=== PATIENT | female | born 1940 | race Caucasian/White ===

== ENCOUNTER 2020-12-26 10:19 | Inpatient (IN) | payer MEDICARE, BC ==
[2020-12-26] MEDS ORDERED: CHLORPHENIRAMINE MALEATE 4 MG PO PRN (17:12)
[2020-12-26] MEDS ORDERED: Bisacodyl 10 MG Supp RECTAL PRN (17:12)
[2020-12-26] MEDS ORDERED: Acetaminophen/HYDROcodone 325-5 MG Tab PO PRN (17:12)
[2020-12-26] MEDS ORDERED: Non-Formulary Medication 1 Each (Docusate Sodium [Docusate Sodium] 283 MG/5 ML Enema) RC PRN (17:12)
[2020-12-26] MEDS ORDERED: Non-Formulary Medication 1 Each (Nicotine Polacrilex [Nicotine Lozenge] 2 MG Lozenge) BC PRN (17:12)
[2020-12-26] MEDS ORDERED: Melatonin 3 MG Tab PO PRN (17:12)
[2020-12-26] MEDS ORDERED: [UNRECOGNIZED DRUG - OTHER] PO PRN (17:12)
[2020-12-26] MEDS ORDERED: Nitroglycerin 0.4 MG Tab.SL SL PRN (17:12)
[2020-12-26] MEDS ORDERED: Calcium Carbonate 500 MG Tab.Chew PO PRN (17:12)
[2020-12-26] MEDS ORDERED: Acetaminophen 325 MG Tab PO PRN (17:12)
[2020-12-26] MEDS ORDERED: MENTHOL PO PRN (17:12)
[2020-12-26] MEDS ORDERED: ALPRAZolam 0.25 MG Tab PO PRN (17:12)
[2020-12-26] MEDS ORDERED: Polyethylene Glycol 3350 Powder 17 GM Packet PO PRN (17:12)
[2020-12-26] MEDS ORDERED: BENZOCAINE PO PRN (17:12)
[2020-12-26] MEDS: Albuterol 8 GM Inhaler INH SCH ×2 (17:55→21:59)
[2020-12-26] MEDS: Benzonatate 100 MG Cap PO SCH (20:23)
[2020-12-26] MEDS: guaiFENesin 600 MG Tab.ER PO SCH (20:23)
[2020-12-26] MEDS: traMADol 50 MG Tab PO SCH (20:23)
[2020-12-26] MEDS: Cyclobenzaprine 5 MG Tab PO SCH (20:24)
[2020-12-26] MEDS: Simvastatin 10 MG Tab PO SCH (20:24)
[2020-12-26] MEDS: Metoprolol Tartrate 50 MG Tab PO SCH (20:25)
[2020-12-26] MEDS ORDERED: traMADol 50 MG Tab PO SCH (21:00)
[2020-12-27] MEDS: Albuterol 8 GM Inhaler INH SCH ×3 (01:10→10:16)
[2020-12-27] MEDS: Levothyroxine 50 MCG Tab PO SCH (05:55)
[2020-12-27] MEDS: Omeprazole 20 MG Cap.CR PO SCH ×2 (05:56→06:33)
[2020-12-27] MEDS: Furosemide 40 MG Tab PO SCH (08:18)
[2020-12-27] MEDS: Levofloxacin 500 MG Tab PO SCH (08:18)
[2020-12-27] MEDS: guaiFENesin 600 MG Tab.ER PO SCH ×2 (08:18→20:06)
[2020-12-27] MEDS: Metoprolol Tartrate 50 MG Tab PO SCH ×2 (08:19→20:06)
[2020-12-27] MEDS: Cyclobenzaprine 5 MG Tab PO SCH ×3 (08:19→20:05)
[2020-12-27] MEDS: Benzonatate 100 MG Cap PO SCH ×3 (08:19→20:05)
[2020-12-27] MEDS: Escitalopram 10 MG Tab PO SCH (08:19)
[2020-12-27] MEDS: Multivitamins with Minerals/Iron/Folic Acid/Lycopene Tab PO SCH (08:20)
[2020-12-27] MEDS: Nicotine 14 MG/24 Hr Patch TRDERM SCH (08:25)
[2020-12-27] MEDS: Lisinopril 5 MG Tab PO SCH (08:25)
[2020-12-27] MEDS: Cyanocobalamin (Vitamin B12) 500 MCG Tab PO SCH (08:31)
[2020-12-27] MEDS ORDERED: Lisinopril 5 MG Tab PO SCH (09:00)
--- NOTE | 2020-12-27 09:12 | PCM.HP.2 ---
H&P History of Present Illness - General Date of Service: 12/27/20 Admit Problem/Dx: Admission Diagnosis/Problem Admission Diagnosis/Problem Compression fracture Source of Information: Patient, Old Records, RN History Limitations: Reports: No Limitations Upper Back Pain Score (Numeric/FACES): 0 - Related Data Allergies/Adverse Reactions: Allergies Allergy/AdvReac Type Severity Reaction Status Date / Time naproxen [From Aleve] Allergy Cannot Verified 12/28/20 16:05 Remember Penicillins Allergy Rash Verified 12/28/20 16:05 Sulfa (Sulfonamide Allergy Cannot Verified 12/28/20 16:05 Antibiotics) Remember Home Medications: Home Meds Albuterol [Ventolin HFA] 2 puff INH Q4H 09/06/17 [History] Chlorpheniramine Maleate [Chlor-Trimeton] 4 mg PO Q6HR PRN 09/06/17 [History] Dabigatran Etexilate Mesylate [Pradaxa] 1 cap PO BID 09/06/17 [History] Multivitamins [Tab-A-Gabriel] 1 tab PO DAILY 09/06/17 [History] Omeprazole 1 cap PO DAILY 09/06/17 [History] Simvastatin [Zocor] 10 mg PO BEDTIME 09/06/17 [History] ALPRAZolam [Xanax] 0.25 mg PO BID PRN 04/12/20 [History] Acetaminophen [Tylenol] 650 mg PO Q4H PRN 04/12/20 [History] Calcium Carbonate [Tums] 1,000 mg PO Q4HR PRN 04/12/20 [History] Cyanocobalamin (Vitamin B-12) [Vitamin B-12] 1,000 mcg PO DAILY 04/12/20 [History] Escitalopram Oxalate 1 tab PO DAILY 04/12/20 [History] Nitroglycerin [Nitrostat] 0.4 mg SL ASDIRECTED PRN 04/12/20 [History] Azelastine HCl 1 spray NASBOTH Q12HR 04/13/20 [History] Benzocaine/Menthol [Cepacol Sore Throat Lozenge] 1 lozenge PO QID PRN 12/26/20 [History] Docusate Sodium 283 mg RC DAILY PRN 12/26/20 [History] Hydrocodone/Acetaminophen [HYDROcodone-Acetaminophen 5-325 MG] 1 tab PO TID PRN 12/26/20 [History] Levothyroxine 150 mcg PO DAILY 12/26/20 [History] Melatonin 3 mg PO BEDTIME PRN 12/26/20 [History] Nicotine Polacrilex [Nicotine Lozenge] 2 mg BC ASDIRECTED PRN 12/26/20 [History] Sennosides [Senna] 2 tab PO BID PRN 12/26/20 [History] polyethylene glycoL 3350 [MiraLAX] 17 gm PO DAILY PRN 12/26/20 [History] Budesonide/Glycopyr/Formoterol [Breztri Aerosphere Inhaler] 2 puff INH BID #1 ea 01/03/21 [Rx] Cyclobenzaprine [Flexeril] 5 mg PO TID PRN #30 01/03/21 [Rx] Furosemide 40 mg PO DAILY PRN #30 01/03/21 [Rx] Metoprolol Succinate [Toprol XL] 25 mg PO BEDTIME #30 tab.er 01/03/21 [Rx] Nicotine [Nicotine Patch] 14 mg TD DAILY #30 ea 01/03/21 [Rx] buPROPion HCL [Bupropion HCl Sr] 100 mg PO BID #60 tab.sr.12h 01/03/21 [Rx] lisinopriL [Prinivil] 5 mg PO DAILY #30 tablet 01/03/21 [Rx] traMADol [Ultram] 50 mg PO TID PRN 14 Days #30 01/03/21 [Rx] Past Medical History HEENT History: Reports: Allergic Rhinitis Cardiovascular History: Reports: Afib, CAD, Heart Valve Replacement, High Cholesterol, Other (See Below) Other Cardiovascular History: Valvular heart disease Respiratory History: Reports: COPD Gastrointestinal History: Reports: Cholelithiasis, GERD, Other (See Below) Other Gastrointestinal History: dysphagia, rectocele Genitourinary History: Reports: Other (See Below) Other Genitourinary History: malignant neoplasm of bladder unspecified Musculoskeletal History: Reports: Other (See Below) Other Musculoskeletal History: Arthralgia of foot Psychiatric History: Reports: Depression Endocrine/Metabolic History: Reports: Hypothyroidism Hematologic History: Reports: B12 Deficiency Oncologic (Cancer) History: Reports: Bladder, Other (See Below) Other Oncologic History: Anal skin - Infectious Disease History Infectious Disease History: Reports: None - Past Surgical History Oncologic Surgical History: Reports: Other (See Below) Other Oncologic Surgeries/Procedures: 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 Social & Family History - Family History HEENT: Reports: None Cardiac: Reports: Hypertension, Other (See Below) Respiratory: Reports: None GI: Reports: Hiatal Hernia : Reports: None OBGYN: Reports: None Musculoskeletal: Reports: None Neurological: Reports: None Psychiatric: Reports: None Endocrine/Metabolic: Reports: None Hematologic: Reports: None Immunologic: Reports: None Dermatologic: Reports: None Oncologic: Reports: Other (See Below) - Tobacco Use Tobacco Use Status *Q: Current Every Day Tobacco User Years of Tobacco use: 50 Packs/Tins Daily: 0.5 - Caffeine Use Caffeine Use: Reports: Coffee, Soda - Recreational Drug Use Recreational Drug Use: No H&P Review of Systems - Review of Systems: Review Of Systems: See Below General: Reports: No Symptoms HEENT: Reports: No Symptoms Pulmonary: Reports: Cough, Sputum (white to yellow) Cardiovascular: Denies: No Symptoms Gastrointestinal: Reports: Constipation Genitourinary: Reports: Dysuria Musculoskeletal: Reports: Back Pain Psychiatric: Reports: No Symptoms Neurological: Reports: Weakness, Gait Disturbance. Denies: Confusion, Dizziness Hematologic/Lymphatic: Reports: Anemia Immunologic: Reports: No Symptoms Exam - Exam Exam: See Below - Vital Signs Vital Signs: Last Vital Signs Temp 97.2 F 12/27/20 08:17 Pulse 60 12/27/20 08:19 Resp 18 12/27/20 08:17 BP 140/95 H 12/27/20 08:25 Pulse Ox 96 12/27/20 08:17 Weight: 138 lb 14.4 oz - Exam Quality Assessment: DVT Prophylaxis. No: Supplemental Oxygen General: Alert, Oriented, Cooperative HEENT: Mucosa Moist & H. Rivera Colon Neck: Supple Lungs: Rhonchi Cardiovascular: Irregular Rhythm GI/Abdominal Exam: Soft, No Distention. No: Guarding, Rigid, Rebound, Tender, Mass (Female) Exam: Deferred Extremities: Normal Capillary Refill Skin: Warm, Dry, Intact Neurological: Normal Speech, Sensation Intact. No: Focal Deficit Neuro Extensive - Mental Status: Alert, Oriented x3 Neuro Extensive - Motor, Sensory, Reflexes: CN II-XII Intact. No: Receptive Aphasia Psychiatric: Alert, Normal Affect, Labile Mood - Patient Data Result Diagrams: 01/01/21 07:10 01/01/21 07:10 Sepsis Event Note - Evaluation Sepsis Screening Result: No Definite Risk - Focused Exam Vital Signs: Vital Signs Temp Pulse Pulse Resp BP BP Pulse Ox 12/27/20 08:25 140/95 H 12/27/20 08:19 60 140/95 H 12/27/20 08:17 97.2 F 60 18 140/95 H 96 Problem List Initiated/Reviewed/Updated: Yes Orders Last 24hrs: Active Orders 24 hr Category Date Time Status Patient Status [ADT] Routine ADT 12/26/20 12:00 Active Communication Order [RC] Care 12/26/20 12:48 Active Intake and Output [RC] 1400,2200,0600 Care 12/26/20 12:08 Active Oxygen Therapy [RC] .PRN Care 12/26/20 12:00 Active Up With Assistance [RC] DAILY Care 12/26/20 12:08 Active VTE/DVT Education [RC] We@09 Care 12/26/20 12:00 Active Vital Signs [RC] Care 12/26/20 12:00 Active OT Evaluation and Treatment [CONS] Stat Cons 12/26/20 12:08 Active PT Evaluation and Treatment [CONS] Routine Cons 12/26/20 12:08 Active Regular Diet [DIET] Diet 12/26/20 Dinner Active ALPRAZolam [Xanax] Med 12/26/20 17:12 Active 0.25 mg PO BID PRN Acetaminophen [TylenoL] Med 12/26/20 17:12 Active 650 mg PO Q4H PRN Acetaminophen/HYDROcodone [Cresco 325-5 MG] Med 12/26/20 17:12 Active 1 tab PO TID PRN Albuterol [Ventolin HFA] Med 12/26/20 18:00 Active 0 gm INH Q4H Azelastine HCl [Azelastine HCl] Med 12/26/20 17:15 Pending 1 spray NASBOTH Q12HR Benzocaine/Menthol [Cepacol Sore Throat Lozenge] Med 12/26/20 17:12 Pending 1 lozenge PO QID PRN Benzonatate [Tessalon Perles] Med 12/26/20 21:00 Active 200 mg PO TID Budesonide/Glycopyr/Formoterol [Breztri Aerosphere Med 12/26/20 21:00 Pending Inhaler] 2 puff INH BID Calcium Carbonate [Tums] Med 12/26/20 17:12 Active 1,000 mg PO Q4HR PRN Chlorpheniramine Maleate [Chlor-Trimeton] Med 12/26/20 17:12 Pending 4 mg PO Q6HR PRN Cyanocobalamin (Vitamin B12) [Vitamin B12] Med 12/27/20 09:00 Active 1,000 mcg PO DAILY Cyclobenzaprine [Flexeril] Med 12/26/20 21:00 Active 5 mg PO TID Dabigatran Med 12/26/20 21:00 Pending 1 cap PO BID Docusate Sodium/Sennosides [Senna Plus] Med 12/26/20 17:12 Active 2 tab PO BID PRN Escitalopram [Lexapro] Med 12/27/20 09:00 Active 10 mg PO DAILY FA/Lycopene/Lut/MV,Ca,Iron,Min [Centrum] Med 12/27/20 09:00 Active 1 tab PO DAILY Furosemide [Lasix] Med 12/27/20 09:00 Active 40 mg PO DAILY Levothyroxine [Synthroid] Med 12/27/20 06:00 Active 150 mcg PO DAILY@0600 Melatonin Med 12/26/20 17:12 Active 3 mg PO BEDTIME PRN Metoprolol Tartrate [Lopressor] Med 12/26/20 21:00 Active 100 mg PO BID Nicotine [Habitrol] Med 12/27/20 09:00 Active 14 mg TRDERM DAILY Nitroglycerin [Nitrostat] Med 12/26/20 17:12 Active 0.4 mg SL ASDIRECTED PRN Omeprazole Med 12/27/20 07:30 Active 20 mg PO ACBREAKFAST Simvastatin [Zocor] Med 12/26/20 21:00 Active 10 mg PO BEDTIME bisacodyL [Dulcolax] Med 12/26/20 17:12 Active 10 mg RECTAL DAILY PRN guaiFENesin [Mucinex] Med 12/26/20 21:00 Active 600 mg PO BID levoFLOXacin [Levaquin] Med 12/27/20 09:00 Active 500 mg PO DAILY lisinopriL [Prinivil] Med 12/27/20 09:00 Active 2.5 mg PO DAILY polyethylene glycoL 3350 [MiraLAX] Med 12/26/20 17:12 Active 17 gm PO DAILY PRN traMADol [Ultram] Med 12/26/20 21:00 Active 50 mg PO TID traMADol [Ultram] Med 12/26/20 21:00 Pending 50 mg PO TID Resuscitation Status Routine Resus Stat 12/26/20 12:00 Ordered Medication Orders Acetaminophen (Acetaminophen 325 Mg Tab) 650 mg PO Q4H PRN PRN Reason: Pain Last Admin: 12/27/20 01:08 Dose: 650 mg Documented by: DEX Hydrocodone Bitart/Acetaminophen (Acetaminophen/Hydrocodone 325-5 Mg Tab) 1 tab PO TID PRN PRN Reason: Pain Albuterol (Albuterol 8 Gm Inhaler) 0 gm INH Q4H [facility] Last Admin: 12/27/20 06:10 Dose: 2 puff Documented by: Admin: 12/27/20 01:10 Dose: 2 puff Documented by: Admin: 12/26/20 21:59 Dose: Not Given Documented by: Admin: 12/26/20 17:55 Dose: 2 puff Documented by: KRISTINE Alprazolam (Alprazolam 0.25 Mg Tab) 0.25 mg PO BID PRN PRN Reason: Anxiety Benzonatate (Benzonatate 100 Mg Cap) 200 mg PO TID [facility] Last Admin: 12/27/20 08:19 Dose: 200 mg Documented by: Admin: 12/26/20 20:23 Dose: 200 mg Documented by: DEX Bisacodyl (Bisacodyl 10 Mg Supp) 10 mg RECTAL DAILY PRN PRN Reason: Constipation Last Admin: 12/26/20 18:43 Dose: 10 mg Documented by: KRISTINE Calcium Carbonate/Glycine (Calcium Carbonate 500 Mg Tab.Chew) 1,000 mg PO Q4HR PRN PRN Reason: Indigestion Cyanocobalamin (Cyanocobalamin (Vitamin B12) 500 Mcg Tab) 1,000 mcg PO DAILY [facility] Last Admin: 12/27/20 08:31 Dose: 1,000 mcg Documented by: AMEYA Cyclobenzaprine HCl (Cyclobenzaprine 5 Mg Tab) 5 mg PO TID [facility] Last Admin: 12/27/20 08:19 Dose: 5 mg Documented by: Admin: 12/26/20 20:24 Dose: 5 mg Documented by: DEX Escitalopram Oxalate (Escitalopram 10 Mg Tab) 10 mg PO DAILY [facility] Last Admin: 12/27/20 08:19 Dose: 10 mg Documented by: AMEYA Furosemide (Furosemide 40 Mg Tab) 40 mg PO DAILY [facility] Last Admin: 12/27/20 08:18 Dose: 40 mg Documented by: AMEYA Guaifenesin (Guaifenesin 600 Mg Tab.Er) 600 mg PO BID [facility] Last Admin: 12/27/20 08:18 Dose: 600 mg Documented by: Admin: 12/26/20 20:23 Dose: 600 mg Documented by: DEX Levofloxacin (Levofloxacin 500 Mg Tab) 500 mg PO DAILY [facility] Stop: 12/28/20 09:01 Last Admin: 12/27/20 08:18 Dose: 500 mg Documented by: AMEYA Levothyroxine Sodium (Levothyroxine 50 Mcg Tab) 150 mcg PO DAILY@0600 [facility] Last Admin: 12/27/20 05:55 Dose: 150 mcg Documented by: DEX Lisinopril (Lisinopril 5 Mg Tab) 2.5 mg PO DAILY [facility] Last Admin: 12/27/20 08:25 Dose: 2.5 mg Documented by: AMEYA Melatonin (Melatonin 3 Mg Tab) 3 mg PO BEDTIME PRN PRN Reason: Insomnia Metoprolol Tartrate (Metoprolol Tartrate 50 Mg Tab) 100 mg PO BID [facility] Last Admin: 12/27/20 08:19 Dose: 100 mg Documented by: Admin: 12/26/20 20:25 Dose: 100 mg Documented by: DEX Multivitamins/Minerals (Multivitamins With Minerals/Iron/Folic Acid/Lycopene Tab) 1 tab PO DAILY [facility] Last Admin: 12/27/20 08:20 Dose: 1 tab Documented by: AMEYA Nicotine (Nicotine 14 Mg/24 Hr Patch) 14 mg TRDERM DAILY [facility] Last Admin: 12/27/20 08:25 Dose: 14 mg Documented by: AMEYA Nitroglycerin (Nitroglycerin 0.4 Mg Tab.Sl) 0.4 mg SL ASDIRECTED PRN PRN Reason: Chest Pain Non-Formulary Medication (Azelastine Hcl [Azelastine Hcl]) 1 spray NASBOTH Q12HR FABY Non-Formulary Medication (Benzocaine/Menthol [Cepacol Sore Throat Lozenge]) 1 lozenge PO QID PRN PRN Reason: Sore Throat Non-Formulary Medication (Budesonide/Glycopyr/Formoterol [Breztri Aerosphere Inhaler]) 2 puff INH BID FABY Non-Formulary Medication (Chlorpheniramine Maleate [Chlor-Trimeton]) 4 mg PO Q6HR PRN PRN Reason: Rhinitis Non-Formulary Medication (Dabigatran) 1 cap PO BID FABY Omeprazole (Omeprazole 20 Mg Cap.Cr) 20 mg PO ACBREAKFAST [facility] Last Admin: 12/27/20 06:33 Dose: Not Given Documented by: Admin: 12/27/20 05:56 Dose: 20 mg Documented by: DEX Polyethylene Glycol (Polyethylene Glycol 3350 Powder 17 Gm Packet) 17 gm PO DA AISHA PRN PRN Reason: Constipation Senna/Docusate Sodium (Docusate Sodium/Sennosides 50-8.6 Mg Tab) 2 tab PO BID PRN PRN Reason: Constipation Simvastatin (Simvastatin 10 Mg Tab) 10 mg PO BEDTIME [facility] Last Admin: 12/26/20 20:24 Dose: 10 mg Documented by: DEX Tramadol HCl (Tramadol 50 Mg Tab) 50 mg PO TID FABY Tramadol HCl (Tramadol 50 Mg Tab) 50 mg PO TID [facility] Stop: 12/27/20 09:01 Last Admin: 12/26/20 20:23 Dose: 50 mg Documented by: DEX Assessment/Plan Comment:: History of present illness Ms. Schafer is an 80-year-old female that was admitted into swing bed/rehabilitation for strengthening. She was recently admitted and treated for pneumonia he was having back pain in which a subsequent CT demonstrated possible RLL with incidental finding of T7, T8 thoracic compression fractures--treated conservatively with TLSO bracing Primary problems --Pneumonia, RLL, Started on Levofloxacin 500 mg PO on 12/22/20. --T7, T8 thoracic compression fractures - TLSO when OOB, - Pain management with tramadol, scheduled acetaminophen, DC'd Cresco - Bowel regimen, added Movantik, - PT/OT (low intensity) --COPD/Panlobular emphysema, LABA/LAMA --Tobacco use disorder, NRT and cessation counseling, non-contemplating stage of quitting Chronic Problems: Pulmonary hypertension Atrial fibrillation, chronic, dabigatran. rate control Metoprolol Lung nodule HF Chronic diastolic, Lasix, ACEI Hyperlipidemia, statin Hypertension, ACEI, Lasix, Metoprolol Valvular heart disease/Coronary artery disease/PAD Hypothyroidism, levothyroxine History of bladder cancer Vitamin B12 deficiency anemia GERD, PPI Depression/Anxiety, Lexapro CODE STATUS: Full Code Diet: Regular diet DVT Prophylaxis: Pradaxa Disposition/overall plan --Admitted into swing bed status at [facility] for low intensity PT/OT for strengthening and TLSO brace management Consultations/follow-ups -Neurosurgery clinic f/u? - Mortality Measure Prognosis:: Good
[2020-12-27] MEDS ORDERED: traMADol 50 MG Tab PO PRN (10:08)
[2020-12-27] MEDS: traMADol 50 MG Tab PO SCH (10:10)
[2020-12-27] MEDS ORDERED: Albuterol 8 GM Inhaler INH PRN (10:16)
[2020-12-27] MEDS: Naloxegol Oxalate 25 MG Tab PO SCH (11:25)
[2020-12-27] MEDS: Acetaminophen 325 MG Tab PO SCH ×2 (13:07→21:09)
[2020-12-27] MEDS: PRADAXA 150 MG PO SCH ×2 (14:30→20:09)
[2020-12-27] MEDS: FLUTICASONE PROPIONATE NASBOTH SCH (14:31)
[2020-12-27] MEDS: BREZTRI INH SCH ×2 (14:33→20:09)
[2020-12-27] MEDS: Simvastatin 10 MG Tab PO SCH (20:06)
[2020-12-28] MEDS: Acetaminophen 325 MG Tab PO SCH ×4 (05:54→21:19)
[2020-12-28] MEDS: Levothyroxine 50 MCG Tab PO SCH (05:54)
[2020-12-28] MEDS: Omeprazole 20 MG Cap.CR PO SCH ×2 (05:55→07:15)
[2020-12-28] MEDS: guaiFENesin 600 MG Tab.ER PO SCH ×2 (08:07→20:33)
[2020-12-28] MEDS: Cyclobenzaprine 5 MG Tab PO SCH ×3 (08:07→20:36)
[2020-12-28] MEDS: PRADAXA 150 MG PO SCH ×2 (08:07→20:41)
[2020-12-28] MEDS: Benzonatate 100 MG Cap PO SCH ×3 (08:07→20:33)
[2020-12-28] MEDS: Cyanocobalamin (Vitamin B12) 500 MCG Tab PO SCH (08:08)
[2020-12-28] MEDS: Naloxegol Oxalate 25 MG Tab PO SCH (08:08)
[2020-12-28] MEDS: Lisinopril 5 MG Tab PO SCH (08:08)
[2020-12-28] MEDS: Furosemide 40 MG Tab PO SCH (08:08)
[2020-12-28] MEDS: Levofloxacin 500 MG Tab PO SCH (08:08)
[2020-12-28] MEDS: Escitalopram 10 MG Tab PO SCH (08:08)
[2020-12-28] MEDS: Multivitamins with Minerals/Iron/Folic Acid/Lycopene Tab PO SCH (08:08)
[2020-12-28] MEDS: Metoprolol Tartrate 50 MG Tab PO SCH ×2 (08:09→20:34)
[2020-12-28] MEDS: FLUTICASONE PROPIONATE NASBOTH SCH (08:09)
[2020-12-28] MEDS: BREZTRI INH SCH ×2 (08:09→20:41)
[2020-12-28] MEDS: Nicotine 14 MG/24 Hr Patch TRDERM SCH (08:10)
[2020-12-28] MEDS: Simvastatin 10 MG Tab PO SCH (20:33)
[2020-12-29] MEDS: Omeprazole 20 MG Cap.CR PO SCH ×2 (06:01→06:34)
[2020-12-29] MEDS: Acetaminophen 325 MG Tab PO SCH ×3 (06:01→22:08)
[2020-12-29] MEDS: Levothyroxine 50 MCG Tab PO SCH (06:01)
[2020-12-29] MEDS: Cyanocobalamin (Vitamin B12) 500 MCG Tab PO SCH (08:34)
[2020-12-29] MEDS: Naloxegol Oxalate 25 MG Tab PO SCH (08:34)
[2020-12-29] MEDS: Escitalopram 10 MG Tab PO SCH (08:34)
[2020-12-29] MEDS: Cyclobenzaprine 5 MG Tab PO SCH ×3 (08:34→22:08)
[2020-12-29] MEDS: guaiFENesin 600 MG Tab.ER PO SCH ×2 (08:36→22:09)
[2020-12-29] MEDS: PRADAXA 150 MG PO SCH ×2 (08:36→22:07)
[2020-12-29] MEDS: Multivitamins with Minerals/Iron/Folic Acid/Lycopene Tab PO SCH (08:36)
[2020-12-29] MEDS: FLUTICASONE PROPIONATE NASBOTH SCH (08:37)
[2020-12-29] MEDS: Benzonatate 100 MG Cap PO SCH ×3 (08:37→22:08)
[2020-12-29] MEDS: BREZTRI INH SCH ×2 (08:38→22:09)
[2020-12-29] MEDS: Metoprolol Tartrate 50 MG Tab PO SCH ×2 (08:44→22:13)
[2020-12-29] MEDS: Lisinopril 5 MG Tab PO SCH (08:46)
[2020-12-29] MEDS: Furosemide 40 MG Tab PO SCH (08:46)
[2020-12-29] MEDS: Nicotine 14 MG/24 Hr Patch TRDERM SCH (08:48)
[2020-12-29] MEDS: Simvastatin 10 MG Tab PO SCH (22:08)
[2020-12-30] MEDS: Levothyroxine 50 MCG Tab PO SCH (07:24)
[2020-12-30] MEDS: Acetaminophen 325 MG Tab PO SCH ×3 (07:24→21:16)
[2020-12-30] MEDS: Omeprazole 20 MG Cap.CR PO SCH (07:24)
[2020-12-30] MEDS: Lisinopril 5 MG Tab PO SCH (09:14)
[2020-12-30] MEDS: Escitalopram 10 MG Tab PO SCH (09:14)
[2020-12-30] MEDS: Furosemide 40 MG Tab PO SCH (09:14)
[2020-12-30] MEDS: Multivitamins with Minerals/Iron/Folic Acid/Lycopene Tab PO SCH (09:14)
[2020-12-30] MEDS: Naloxegol Oxalate 25 MG Tab PO SCH (09:14)
[2020-12-30] MEDS: Metoprolol Tartrate 50 MG Tab PO SCH ×2 (09:15→21:21)
[2020-12-30] MEDS: Benzonatate 100 MG Cap PO SCH ×3 (09:15→21:17)
[2020-12-30] MEDS: Cyanocobalamin (Vitamin B12) 500 MCG Tab PO SCH (09:15)
[2020-12-30] MEDS: guaiFENesin 600 MG Tab.ER PO SCH ×2 (09:15→21:17)
[2020-12-30] MEDS: Cyclobenzaprine 5 MG Tab PO SCH ×3 (09:16→21:15)
[2020-12-30] MEDS: FLUTICASONE PROPIONATE NASBOTH SCH (09:17)
[2020-12-30] MEDS: Nicotine 14 MG/24 Hr Patch TRDERM SCH (09:17)
[2020-12-30] MEDS: PRADAXA 150 MG PO SCH ×2 (09:17→21:17)
[2020-12-30] MEDS: BREZTRI INH SCH ×2 (09:19→21:15)
[2020-12-30] MEDS: Simvastatin 10 MG Tab PO SCH (21:16)
[2020-12-31] MEDS: Acetaminophen 325 MG Tab PO SCH ×3 (06:11→22:12)
[2020-12-31] MEDS: Levothyroxine 50 MCG Tab PO SCH (06:11)
[2020-12-31] MEDS: Omeprazole 20 MG Cap.CR PO SCH (07:22)
[2020-12-31] MEDS: Furosemide 40 MG Tab PO SCH (08:53)
[2020-12-31] MEDS: Benzonatate 100 MG Cap PO SCH ×3 (08:54→22:08)
[2020-12-31] MEDS: Multivitamins with Minerals/Iron/Folic Acid/Lycopene Tab PO SCH (08:54)
[2020-12-31] MEDS: Escitalopram 10 MG Tab PO SCH (08:54)
[2020-12-31] MEDS: Cyclobenzaprine 5 MG Tab PO SCH ×3 (08:55→22:10)
[2020-12-31] MEDS: Naloxegol Oxalate 25 MG Tab PO SCH (08:55)
[2020-12-31] MEDS: Cyanocobalamin (Vitamin B12) 500 MCG Tab PO SCH (08:56)
[2020-12-31] MEDS: guaiFENesin 600 MG Tab.ER PO SCH ×2 (08:56→22:09)
[2020-12-31] MEDS: FLUTICASONE PROPIONATE NASBOTH SCH (09:01)
[2020-12-31] MEDS: PRADAXA 150 MG PO SCH ×2 (09:01→22:14)
[2020-12-31] MEDS: Nicotine 14 MG/24 Hr Patch TRDERM SCH (09:02)
[2020-12-31] MEDS: BREZTRI INH SCH ×2 (09:04→22:08)
[2020-12-31] MEDS: Metoprolol Tartrate 50 MG Tab PO SCH ×2 (10:32→22:09)
[2020-12-31] MEDS: Lisinopril 5 MG Tab PO SCH (10:32)
[2020-12-31] MEDS: Simvastatin 10 MG Tab PO SCH (22:09)
[2021-01-01] MEDS: Levothyroxine 50 MCG Tab PO SCH (06:35)
[2021-01-01] MEDS: Omeprazole 20 MG Cap.CR PO SCH (06:35)
[2021-01-01] MEDS: Acetaminophen 325 MG Tab PO SCH ×3 (06:36→21:33)
[2021-01-01] MEDS: Cyanocobalamin (Vitamin B12) 500 MCG Tab PO SCH (08:25)
[2021-01-01] MEDS: Nicotine 14 MG/24 Hr Patch TRDERM SCH (08:26)
[2021-01-01] MEDS: guaiFENesin 600 MG Tab.ER PO SCH ×2 (08:26→21:34)
[2021-01-01] MEDS: Lisinopril 5 MG Tab PO SCH (08:26)
[2021-01-01] MEDS: Benzonatate 100 MG Cap PO SCH ×3 (08:27→21:34)
[2021-01-01] MEDS: Furosemide 40 MG Tab PO SCH (08:27)
[2021-01-01] MEDS: Escitalopram 10 MG Tab PO SCH (08:27)
[2021-01-01] MEDS: Naloxegol Oxalate 25 MG Tab PO SCH (08:27)
[2021-01-01] MEDS: Multivitamins with Minerals/Iron/Folic Acid/Lycopene Tab PO SCH (08:27)
[2021-01-01] MEDS: Metoprolol Tartrate 50 MG Tab PO SCH ×2 (08:27→21:37)
[2021-01-01] MEDS: Cyclobenzaprine 5 MG Tab PO SCH (08:27)
[2021-01-01] MEDS: BREZTRI INH SCH ×2 (08:32→21:32)
[2021-01-01] MEDS: FLUTICASONE PROPIONATE NASBOTH SCH (08:32)
[2021-01-01] MEDS: PRADAXA 150 MG PO SCH ×2 (08:32→21:33)
[2021-01-01 10:10] LABS: ANION GAP 12.1 mmol/L (5-15); CHLORIDE,CL 98 mmol/L (98-107); SODIUM,NA 135 mmol/L (136-145)
[2021-01-01] MEDS ORDERED: Cyclobenzaprine 5 MG Tab PO PRN (10:45)
[2021-01-01] MEDS: Simvastatin 10 MG Tab PO SCH (21:35)
[2021-01-02] MEDS: Levothyroxine 50 MCG Tab PO SCH (05:48)
[2021-01-02] MEDS: Acetaminophen 325 MG Tab PO SCH ×3 (05:48→21:08)
[2021-01-02] MEDS: Omeprazole 20 MG Cap.CR PO SCH ×2 (05:48→06:51)
[2021-01-02] MEDS: FLUTICASONE PROPIONATE NASBOTH SCH (09:05)
[2021-01-02] MEDS: BREZTRI INH SCH ×2 (09:06→20:20)
[2021-01-02] MEDS: PRADAXA 150 MG PO SCH ×2 (09:07→20:19)
[2021-01-02] MEDS: Metoprolol Tartrate 50 MG Tab PO SCH (09:08)
[2021-01-02] MEDS: Naloxegol Oxalate 25 MG Tab PO SCH (09:08)
[2021-01-02] MEDS: Benzonatate 100 MG Cap PO SCH ×3 (09:08→20:17)
[2021-01-02] MEDS: Cyanocobalamin (Vitamin B12) 500 MCG Tab PO SCH (09:08)
[2021-01-02] MEDS: Multivitamins with Minerals/Iron/Folic Acid/Lycopene Tab PO SCH (09:08)
[2021-01-02] MEDS: Furosemide 40 MG Tab PO SCH (09:09)
[2021-01-02] MEDS: Escitalopram 10 MG Tab PO SCH (09:09)
[2021-01-02] MEDS: guaiFENesin 600 MG Tab.ER PO SCH ×2 (09:09→20:17)
[2021-01-02] MEDS: Lisinopril 5 MG Tab PO SCH (09:13)
[2021-01-02] MEDS: Nicotine 14 MG/24 Hr Patch TRDERM SCH (09:14)
[2021-01-02] MEDS: Simvastatin 10 MG Tab PO SCH (20:18)
[2021-01-02] MEDS ORDERED: Metoprolol Succinate 25 MG Tab.ER PO SCH (21:00)
[2021-01-03] MEDS: Levothyroxine 50 MCG Tab PO SCH (05:45)
[2021-01-03] MEDS: Omeprazole 20 MG Cap.CR PO SCH ×2 (05:46→06:29)
[2021-01-03] MEDS: Acetaminophen 325 MG Tab PO SCH (05:46)
[2021-01-03] MEDS: Nicotine 14 MG/24 Hr Patch TRDERM SCH (08:30)
[2021-01-03] MEDS: guaiFENesin 600 MG Tab.ER PO SCH (08:30)
[2021-01-03] MEDS: Cyanocobalamin (Vitamin B12) 500 MCG Tab PO SCH (08:30)
[2021-01-03] MEDS: Multivitamins with Minerals/Iron/Folic Acid/Lycopene Tab PO SCH (08:31)
[2021-01-03] MEDS: Benzonatate 100 MG Cap PO SCH (08:31)
[2021-01-03] MEDS: Escitalopram 10 MG Tab PO SCH (08:31)
[2021-01-03] MEDS: Furosemide 40 MG Tab PO SCH (08:32)
[2021-01-03] MEDS: Lisinopril 5 MG Tab PO SCH (08:32)
[2021-01-03] MEDS: Naloxegol Oxalate 25 MG Tab PO SCH (08:32)
[2021-01-03 08:33] VITALS: BP 159/91
[2021-01-03] MEDS: FLUTICASONE PROPIONATE NASBOTH SCH (08:34)
[2021-01-03] MEDS: PRADAXA 150 MG PO SCH (08:34)
[2021-01-03] MEDS: BREZTRI INH SCH (08:35)
[2021-01-03 08:58] VITALS: PULSE 74
--- NOTE | 2021-01-03 09:10 | PCM.DCSUM1 ---
Discharge Summary - Hospital Course Diagnosis: Stroke: No - Discharge Data Discharge Date: 01/03/21 Discharge Disposition: Home, W Home Health Agency 06 Condition: Good - Referral to Home Health Date of Face to Face Encounter: 01/03/21 Reason for Homebound Status: Decreased mobility, to recent thoracic fractures and TLSO brace Primary Care Physician: Bharati Arzate MD Skilled Need: This is an order and a [id number] encounter from home health service to include nursing physical therapy and Occupational Therapy. Will be homebound due to her recent thoracic fractures please help develop an in-home therapy program to address limited strength and endurance due to recent fractures and recent hospitalization for pneumonia. She has compression fractures of her thoracic spine and will be required to wear a TLSO brace while ambulatory. She has had many medication changes adjustments and additions therefore will need a home management program to address and set up her medications. She does have an unsteady gait due to recent thoracic fractures. Patient will be followed by primary care provider in the community setting and will sign home health orders - Patient Summary/Data Consults: Consultations 12/26/20 12:08 OT Evaluation and Treatment [CONS] Stat PT Evaluation and Treatment [CONS] Routine - Patient Instructions Diet: Usual Diet as Tolerated Activity: As Tolerated Driving: Do Not Drive Showering/Bathing: May Shower Notify Provider of: Fever, Increased Pain, Nausea and/or Vomiting Other/Special Instructions: I placed you on bupropion hydrochloride to help with the depression and this will also help with cutting down on your smoking. If using your nicotine patches please cut down on your smoking. Use your blood pressure medicine however your blood pressure should be monitored as we may have to increase your blood pressure medicine again - Discharge Plan *PRESCRIPTION DRUG MONITORING PROGRAM REVIEWED*: Not Applicable *COPY OF PRESCRIPTION DRUG MONITORING REPORT IN PATIENT CRISTINA: Not Applicable Prescriptions/Med Rec: Budesonide/Glycopyr/Formoterol [Breztri Aerosphere Inhaler] 2 puff INH BID #1 ea buPROPion HCL [Bupropion HCl Sr] 100 mg PO BID #60 tab.sr.12h Nicotine [Nicotine Patch] 14 mg TD DAILY #30 ea lisinopriL [Prinivil] 5 mg PO DAILY #30 tablet Metoprolol Succinate [Toprol XL] 25 mg PO BEDTIME #30 tab.er traMADol [Ultram] 50 mg PO TID PRN 14 Days #30 PRN Reason: Pain Home Medications: Home Meds Albuterol [Ventolin HFA] 2 puff INH Q4H 09/06/17 [History] Chlorpheniramine Maleate [Chlor-Trimeton] 4 mg PO Q6HR PRN 09/06/17 [History] Dabigatran Etexilate Mesylate [Pradaxa] 1 cap PO BID 09/06/17 [History] Multivitamins [Tab-A-Gabriel] 1 tab PO DAILY 09/06/17 [History] Omeprazole 1 cap PO DAILY 09/06/17 [History] Simvastatin [Zocor] 10 mg PO BEDTIME 09/06/17 [History] ALPRAZolam [Xanax] 0.25 mg PO BID PRN 04/12/20 [History] Acetaminophen [Tylenol] 650 mg PO Q4H PRN 04/12/20 [History] Calcium Carbonate [Tums] 1,000 mg PO Q4HR PRN 04/12/20 [History] Cyanocobalamin (Vitamin B-12) [Vitamin B-12] 1,000 mcg PO DAILY 04/12/20 [History] Escitalopram Oxalate 1 tab PO DAILY 04/12/20 [History] Nitroglycerin [Nitrostat] 0.4 mg SL ASDIRECTED PRN 04/12/20 [History] Azelastine HCl 1 spray NASBOTH Q12HR 04/13/20 [History] Benzocaine/Menthol [Cepacol Sore Throat Lozenge] 1 lozenge PO QID PRN 12/26/20 [History] Docusate Sodium 283 mg RC DAILY PRN 12/26/20 [History] Hydrocodone/Acetaminophen [HYDROcodone-Acetaminophen 5-325 MG] 1 tab PO TID PRN 12/26/20 [History] Levothyroxine 150 mcg PO DAILY 12/26/20 [History] Melatonin 3 mg PO BEDTIME PRN 12/26/20 [History] Nicotine Polacrilex [Nicotine Lozenge] 2 mg BC ASDIRECTED PRN 12/26/20 [History] Sennosides [Senna] 2 tab PO BID PRN 12/26/20 [History] polyethylene glycoL 3350 [MiraLAX] 17 gm PO DAILY PRN 12/26/20 [History] Budesonide/Glycopyr/Formoterol [Breztri Aerosphere Inhaler] 2 puff INH BID #1 ea 01/03/21 [Rx] Cyclobenzaprine [Flexeril] 5 mg PO TID PRN #30 01/03/21 [Rx] Furosemide 40 mg PO DAILY PRN #30 01/03/21 [Rx] Metoprolol Succinate [Toprol XL] 25 mg PO BEDTIME #30 tab.er 01/03/21 [Rx] Nicotine [Nicotine Patch] 14 mg TD DAILY #30 ea 01/03/21 [Rx] buPROPion HCL [Bupropion HCl Sr] 100 mg PO BID #60 tab.sr.12h 01/03/21 [Rx] lisinopriL [Prinivil] 5 mg PO DAILY #30 tablet 01/03/21 [Rx] traMADol [Ultram] 50 mg PO TID PRN 14 Days #30 01/03/21 [Rx] [facility] - Discharge Summary/Plan Comment DC Time >30 min.: Yes (60) Total # of Minutes for Discharge Time: 60min Discharge Summary/Plan Comment: Final diagnosis --Pneumonia, RLL, Resolved --T7, T8 thoracic compression fractures - TLSO when OOB, - Pain management with tramadol, scheduled acetaminophen, DC'd Blair - Bowel regimen, added Movantik, - PT/OT (low intensity) --COPD/Panlobular emphysema, LABA/LAMA --Tobacco use disorder, NRT and cessation counseling, contemplating stage of quitting Chronic Problems: Pulmonary hypertension Atrial fibrillation, chronic, dabigatran. rate control Metoprolol Lung nodule HF Chronic diastolic, change Lasix to as needed Lasix, ACEI Hyperlipidemia, statin Hypertension, ACEI, Lasix, Metoprolol Valvular heart disease/Coronary artery disease/PAD Hypothyroidism, levothyroxine History of bladder cancer Vitamin B12 deficiency anemia GERD, PPI Depression/Anxiety, Lexapro, newly added bupropion Hospital course Patient's hospital course went well however she did go on a pass and her daughter stated she passed out, she had low blood pressure, her blood pressure medicines metoprolol was decreased however kept GERMAN inhibitor due to heart failure however low dose. At times she had to be encouraged to continue wearing her TLSO brace. She had good bowel regimen with Movantik, physical therapy worked with her she ambulated with four-wheel walker with no loss of balance, completed standing exercise of hip abdominal and hip flexor. She showed good improvement in her stability and balance she demonstrated safety with all mobility with no loss of balance. Medication changes/adjustments upon discharge Discontinue metoprolol tartrate Metoprolol succinate added, 25 mg, daily GERMAN inhibitor lisinopril changed from 2.5 to 5 mg p.o. daily changed Flexeril as needed Nicotine replacement therapy, 14 mg patch daily for smoking cessation Bupropion hydrochloride, 100 mg p.o. twice daily newly added upon discharge Tramadol, 50 mg p.o. 3 times daily as needed for pain Discontinued hydrocodone Disposition/overall plan --She will be discharged with home health services Consultations/follow-ups -Neurosurgery clinic f/u TBD This is an order and a [id number] encounter from home health service to include nursing physical therapy and Occupational Therapy. Will be homebound due to her recent thoracic fractures please help develop an in-home therapy program to address limited strength and endurance due to recent fractures and recent hospitalization for pneumonia. She has compression fractu res of her thoracic spine and will be required to wear a TLSO brace while ambulatory. She has had many medication changes adjustments and additions therefore will need a home management program to address and set up her medications. She does have an unsteady gait due to recent thoracic fractures. Patient will be followed by primary care provider in the community setting and will sign home health orders - General Info Functional Status: Reports: Pain Controlled, Tolerating Diet, Ambulating, Incentive Spirometry. Denies: New Symptoms - Review of Systems General: Denies: Fever, Weakness Pulmonary: Denies: Shortness of Breath, Cough, Sputum Cardiovascular: Denies: Chest Pain, Palpitations, PND, Edema Gastrointestinal: Denies: Abdominal Pain, Diarrhea, Nausea Musculoskeletal: Reports: Back Pain (slight) Skin: Denies: Pallor Neurological: Denies: Confusion - Patient Data Vitals - Most Recent: Last Vital Signs Temp 97.6 F 01/03/21 08:57 Pulse 74 01/03/21 08:57 Resp 20 01/03/21 08:57 BP 159/91 H 01/03/21 08:57 Pulse Ox 96 01/03/21 08:57 Weight - Most Recent: 135 lb 1 oz I&O - Last 24 hours: Intake & Output 08/11/21 08/12/21 08/12/21 22:59 06:59 14:59 Intake Total 750 100 Balance 750 100 Med Orders - Current: Current Medications Acetaminophen (Acetaminophen 325 Mg Tab) 1,300 mg PO Q8H [facility] Last Admin: 01/03/21 05:46 Dose: 1,300 mg Documented by: Albuterol (Albuterol 8 Gm Inhaler) 0 gm INH Q4H PRN PRN Reason: Shortness of Breath Alprazolam (Alprazolam 0.25 Mg Tab) 0.25 mg PO BID PRN PRN Reason: Anxiety Benzonatate (Benzonatate 100 Mg Cap) 200 mg PO TID [facility] Last Admin: 01/03/21 08:31 Dose: 200 mg Documented by: Bisacodyl (Bisacodyl 10 Mg Supp) 10 mg RECTAL DAILY PRN PRN Reason: Constipation Last Admin: 12/26/20 18:43 Dose: 10 mg Documented by: Calcium Carbonate/Glycine (Calcium Carbonate 500 Mg Tab.Chew) 1,000 mg PO Q4HR PRN PRN Reason: Indigestion Cyanocobalamin (Cyanocobalamin (Vitamin B12) 500 Mcg Tab) 1,000 mcg PO DAILY [facility] Last Admin: 01/03/21 08:30 Dose: 1,000 mcg Documented by: Cyclobenzaprine HCl (Cyclobenzaprine 5 Mg Tab) 5 mg PO TID PRN PRN Reason: Spasms Last Admin: 01/01/21 21:37 Dose: 5 mg Documented by: Escitalopram Oxalate (Escitalopram 10 Mg Tab) 10 mg PO DAILY [facility] Last Admin: 01/03/21 08:31 Dose: 10 mg Documented by: Fluticasone Propionate (Fluticasone Propionate Nasal [place] - Ptom) 0 gm NASBOTH DAILY [facility] Last Admin: 01/03/21 08:34 Dose: 2 spray Documented by: Furosemide (Furosemide 40 Mg Tab) 40 mg PO DAILY [facility] Last Admin: 01/03/21 08:32 Dose: 40 mg Documented by: Guaifenesin (Guaifenesin 600 Mg Tab.Er) 600 mg PO BID [facility] Last Admin: 01/03/21 08:30 Dose: 600 mg Documented by: Levothyroxine Sodium (Levothyroxine 50 Mcg Tab) 150 mcg PO DAILY@0600 [facility] Last Admin: 01/03/21 05:45 Dose: 150 mcg Documented by: Lisinopril (Lisinopril 5 Mg Tab) 2.5 mg PO DAILY [facility] Last Admin: 01/03/21 08:32 Dose: 2.5 mg Documented by: Melatonin (Melatonin 3 Mg Tab) 3 mg PO BEDTIME PRN PRN Reason: Insomnia Metoprolol Succinate (Metoprolol Succinate 25 Mg Tab.Er) 25 mg PO BEDTIME [facility] Last Admin: 01/02/21 20:20 Dose: 25 mg Documented by: Multivitamins/Minerals (Multivitamins With Minerals/Iron/Folic Acid/Lycopene Tab) 1 tab PO DAILY [facility] Last Admin: 01/03/21 08:31 Dose: 1 tab Documented by: Naloxegol (Naloxegol Oxalate 25 Mg Tab) 25 mg PO DAILY [facility] Last Admin: 01/03/21 08:32 Dose: 25 mg Documented by: Nicotine (Nicotine 14 Mg/24 Hr Patch) 14 mg TRDERM DAILY [facility] Last Admin: 01/03/21 08:30 Dose: 14 mg Documented by: Nitroglycerin (Nitroglycerin 0.4 Mg Tab.Sl) 0.4 mg SL ASDIRECTED PRN PRN Reason: Chest Pain Breztri (Budesonide/Glycopyr/Formoterol) Inhaler - Ptom 2 puff INH BID [facility] Last Admin: 01/03/21 08:35 Dose: 2 puff Documented by: Omeprazole (Omeprazole 20 Mg Cap.Cr) 20 mg PO ACBREAKFAST [facility] Last Admin: 01/03/21 06:29 Dose: Not Given Documented by: Pradaxa (Dabigatran) (150mg Cap - Ptom) 1 each PO BID [facility] Last Admin: 01/03/21 08:34 Dose: 1 each Documented by: Polyethylene Glycol (Polyethylene Glycol 3350 Powder 17 Gm Packet) 17 gm PO DAILY PRN PRN Reason: Constipation Senna/Docusate Sodium (Docusate Sodium/Sennosides 50-8.6 Mg Tab) 2 tab PO BID PRN PRN Reason: Constipation Simvastatin (Simvastatin 10 Mg Tab) 10 mg PO BEDTIME [facility] Last Admin: 01/02/21 20:18 Dose: 10 mg Documented by: Tramadol HCl (Tramadol 50 Mg Tab) 50 mg PO Q8H PRN PRN Reason: Pain Discontinued Medications Acetaminophen (Acetaminophen 325 Mg Tab) 650 mg PO Q4H PRN PRN Reason: Pain Last Admin: 12/27/20 01:08 Dose: 650 mg Documented by: Hydrocodone Bitart/Acetaminophen (Acetaminophen/Hydrocodone 325-5 Mg Tab) 1 tab PO TID PRN PRN Reason: Pain Albuterol (Albuterol 8 Gm Inhaler) 0 gm INH Q4H [facility] Last Admin: 12/27/20 10:16 Dose: Not Given Documented by: Cyclobenzaprine HCl (Cyclobenzaprine 5 Mg Tab) 5 mg PO TID [facility] Last Admin: 01/01/21 08:27 Dose: 5 mg Documented by: Levofloxacin (Levofloxacin 500 Mg Tab) 500 mg PO DAILY [facility] Stop: 12/28/20 09:01 Last Admin: 12/28/20 08:08 Dose: 500 mg Documented by: Lisinopril (Lisinopril 5 Mg Tab) 12.5 mg PO DAILY [facility] Metoprolol Tartrate (Metoprolol Tartrate 50 Mg Tab) 100 mg PO BID [facility] Last Admin: 01/02/21 09:08 Dose: 100 mg Documented by: Non-Formulary Medication (Docusate Sodium [Docusate Sodium]) 283 mg RC DAILY PRN PRN Reason: Constipation Non-Formulary Medication (Nicotine Polacrilex [Nicotine Lozenge]) 2 mg BC ASDIRECTED PRN PRN Reason: smoking cessation Tramadol HCl (Tramadol 50 Mg Tab) 50 mg PO TID [facility] Stop: 12/27/20 09:01 Last Admin: 12/27/20 10:10 Dose: Not Given Documented by: - Exam Quality Assessment: Denies: Supplemental Oxygen General: Reports: Alert, Oriented, Cooperative, No Acute Distress Lungs: Reports: Clear to Auscultation, Normal Respiratory Effort Cardiovascular: Reports: Regular Rate, Regular Rhythm GI/Abdominal Exam: No Distention (Female) Exam: Deferred Rectal (Female) Exam: Deferred Back Exam: Denies: CVA Tenderness (L), CVA Tenderness (R) Extremities: No Pedal Edema
== END 2021-01-03 10:37 | disposition home health service (06) | DRG 560 ==
LOC: KA.MS 14:50
PROVIDERS: ADMIT Nurse Practitioner Family; ATTEND Family Medicine
DX: S22.069D Unspecified fracture of T7-T8 vertebra, subsequent encounter for fracture with routine healing (principal); I48.20 Chronic atrial fibrillation, unspecified; I50.32 Chronic diastolic (congestive) heart failure; R53.81 Other malaise; J43.1 Panlobular emphysema; I11.0 Hypertensive heart disease with heart failure; E03.9 Hypothyroidism, unspecified; I25.10 Atherosclerotic heart disease of native coronary artery without angina pectoris; I73.9 Peripheral vascular disease, unspecified; E78.5 Hyperlipidemia, unspecified; R91.1 Solitary pulmonary nodule; D51.9 Vitamin B12 deficiency anemia, unspecified; K21.9 Gastro-esophageal reflux disease without esophagitis; F41.9 Anxiety disorder, unspecified; F32.9 Major depressive disorder, single episode, unspecified; E78.00 Pure hypercholesterolemia, unspecified; K80.20 Calculus of gallbladder without cholecystitis without obstruction; I27.20 Pulmonary hypertension, unspecified; F17.200 Nicotine dependence, unspecified, uncomplicated; Z85.51 Personal history of malignant neoplasm of bladder; Z88.0 Allergy status to penicillin; Z88.2 Allergy status to sulfonamides; Z88.8 Allergy status to other drugs, medicaments and biological substances; Z79.899 Other long term (current) drug therapy; Z79.890 Hormone replacement therapy
CPT/HCPCS: 36415; 80048; 85025; 97110-GO; 97110-GP; 97161-GP; 97530-GP; 97535-GO; A9270-GY

== ENCOUNTER 2022-03-05 08:00 | Emergency (ER) | payer MEDICARE, BC ==
[2022-03-28 10:32] LABS: SODIUM,NA 134 mmol/L (136-145)
[2022-03-28 10:33] LABS: ANION GAP 12.4 mmol/L (5-15); CHLORIDE,CL 98 mmol/L (98-115); ESTIMATED GFR 59 mL/min (>=60)
== END 2022-03-05 22:30 | disposition home or self-care (01) ==
LOC: KA.ED 08:00
DX: R42 Dizziness and giddiness (principal); R51.9 Headache, unspecified; W18.39XA Other fall on same level, initial encounter
CPT/HCPCS: 36415; 70450; 72125; 80053; 80307; 85025; 99284

== ENCOUNTER 2022-04-22 21:00 | Observation (INO) | payer MEDICARE, BC ==
[2022-04-23] MEDS ORDERED: Acetaminophen 325 MG Tab PO PRN ×2 (09:54→10:45)
[2022-04-23] MEDS ORDERED: oxyCODONE 5 MG Tab PO PRN (10:11)
[2022-04-23] MEDS ORDERED: Nitroglycerin 0.4 MG Tab.SL SL PRN (10:12)
[2022-04-23] MEDS ORDERED: Albuterol 8 GM Inhaler INH PRN (10:12)
[2022-04-23] MEDS ORDERED: Furosemide 40 MG Tab PO SCH (11:15)
[2022-04-23] MEDS ORDERED: Furosemide 20 MG Tab PO SCH (11:30)
[2022-04-23] MEDS ORDERED: Lisinopril 5 MG Tab PO SCH (11:30)
[2022-04-23] MEDS ORDERED: Escitalopram 10 MG Tab PO SCH ×2 (11:30)
[2022-04-23] MEDS: Levothyroxine 75 MCG Tab PO SCH (11:56)
[2022-04-23] MEDS: Levothyroxine 100 MCG Tab PO SCH (11:57)
[2022-04-23] MEDS: Omeprazole 20 MG Cap.CR PO SCH (11:57)
[2022-04-23] MEDS: Acetaminophen 500 MG Tab PO SCH ×2 (13:26→20:03)
[2022-04-23] MEDS: oxyCODONE 5 MG Tab PO PRN ×2 (15:57→21:31)
[2022-04-23] MEDS: TRELEGY ELLIPTA INH SCH (15:57)
[2022-04-23] MEDS: PRADAXA 150 MG PO SCH (20:01)
[2022-04-23] MEDS: BUPROPION 100 MG PO SCH (20:01)
[2022-04-23] MEDS: Fluticasone NASAL Spray 16 GM Bottle NASBOTH SCH (20:17)
[2022-04-23] MEDS ORDERED: Metoprolol Succinate 25 MG Tab.ER - PTOM PO SCH (21:00)
[2022-04-23] MEDS ORDERED: SIMVASTATIN 10 MG PO SCH (21:00)
[2022-04-23] MEDS ORDERED: Melatonin 3 MG Tab PO SCH (21:00)
[2022-04-24] MEDS: Levothyroxine 75 MCG Tab PO SCH (06:07)
[2022-04-24] MEDS: Levothyroxine 100 MCG Tab PO SCH (06:07)
[2022-04-24] MEDS: Omeprazole 20 MG Cap.CR PO SCH ×2 (06:07→06:31)
[2022-04-24 07:33] LABS: ANION GAP 9.6 mmol/L (5-15)
[2022-04-24] MEDS: BUPROPION 100 MG PO SCH (08:22)
[2022-04-24] MEDS: PRADAXA 150 MG PO SCH (08:22)
[2022-04-24] MEDS: Fluticasone NASAL Spray 16 GM Bottle NASBOTH SCH (08:23)
[2022-04-24] MEDS: TRELEGY ELLIPTA INH SCH (08:23)
[2022-04-24] MEDS: Acetaminophen 500 MG Tab PO SCH (08:24)
[2022-04-24] MEDS: oxyCODONE 5 MG Tab PO PRN (08:24)
[2022-04-24] MEDS ORDERED: LISINOPRIL 2.5 MG PO SCH (09:00)
[2022-04-24] MEDS ORDERED: LEXAPRO 20 MG PO SCH (09:00)
[2022-04-24] MEDS ORDERED: FUROSEMIDE 40 MG PO SCH (09:00)
== END 2022-04-24 09:55 ==
LOC: KA.ED 21:00 → KA.MS 23:30
PROVIDERS: ADMIT Student in an Organized Health Care Education/Training Program; ATTEND Student in an Organized Health Care Education/Training Program
DX: S72.111A Displaced fracture of greater trochanter of right femur, initial encounter for closed fracture (principal); J44.9 Chronic obstructive pulmonary disease, unspecified; I48.91 Unspecified atrial fibrillation; E78.00 Pure hypercholesterolemia, unspecified; K21.9 Gastro-esophageal reflux disease without esophagitis; E03.9 Hypothyroidism, unspecified; F32.A Depression, unspecified; I25.10 Atherosclerotic heart disease of native coronary artery without angina pectoris; E53.8 Deficiency of other specified B group vitamins; F17.210 Nicotine dependence, cigarettes, uncomplicated; Z79.899 Other long term (current) drug therapy; Z79.890 Hormone replacement therapy; Z20.822 Contact with and (suspected) exposure to COVID-19; Z88.0 Allergy status to penicillin; Z88.2 Allergy status to sulfonamides; Z88.6 Allergy status to analgesic agent
CPT/HCPCS: 36415; 73700-RT; 80048; 85025; 97161-GP; 99285; A9270-GY; G0378; U0002

== ENCOUNTER 2023-01-23 11:17 | Emergency (ER) | payer MEDICARE, BC | END 2023-01-23 12:46 | disposition home or self-care (01) | LOC: KA.ED 11:17 | DX: S22.31XA Fracture of one rib, right side, initial encounter for closed fracture (principal); S72.111 Displaced fracture of greater trochanter of right femur; I25.10 Atherosclerotic heart disease of native coronary artery without angina pectoris; I48.91 Unspecified atrial fibrillation; E78.00 Pure hypercholesterolemia, unspecified; K21.9 Gastro-esophageal reflux disease without esophagitis; J44.9 Chronic obstructive pulmonary disease, unspecified; E03.9 Hypothyroidism, unspecified; Z88.0 Allergy status to penicillin; Z88.2 Allergy status to sulfonamides; Z88.6 Allergy status to analgesic agent; W18.30XA Fall on same level, unspecified, initial encounter | CPT/HCPCS: 71101-RT; 99283 ==

== ENCOUNTER 2023-12-29 20:30 | Emergency (ER) | payer MEDICARE, BC ==
[2023-12-29] MEDS ORDERED: Sodium Chloride 0.9% 10 ML Syringe FLUSH PRN (20:42)
[2023-12-29 20:50] LABS: BASOPHILS ABSOLUTE AUTO 0.07 10^3/uL (0.00-0.10); BASOPHILS PERCENT AUTO 0.8 % (0.0-1.0); EOSINOPHILS ABSOLUTE AUTO 0.11 10^3/uL (0.10-0.30); EOSINOPHILS PERCENT AUTO 1.3 % (1.0-3.0); HEMATOCRIT 45.7 % (37.0-47.0); HEMOGLOBIN 15.4 g/dL (12.0-16.0); IMMATURE GRAN ABSOLUTE AUTO 0.03 10^3/uL (0.00-0.50); IMMATURE GRAN PERCENT AUTO 0.4 % (0.0-5.0); LYMPHOCYTES ABSOLUTE AUTO 2.01 10^3/uL (1.00-4.00); LYMPHOCYTES PERCENT AUTO 24.4 % (20.0-40.0); MEAN CORPUSCULAR HEMOGLOBIN 34.8 pg (27.0-31.0); MEAN CORPUSCULAR HGB CONC 33.7 g/dL (32.0-36.0); MEAN CORPUSCULAR VOLUME 103.4 fL (82.0-92.0); MEAN PLATELET VOLUME 8.1 fL (7.4-10.4); MONOCYTES ABSOLUTE AUTO 0.76 10^3/uL (0.10-0.80); MONOCYTES PERCENT AUTO 9.2 % (2.0-8.0); NEUTROPHILS ABSOLUTE AUTO 5.26 10^3/uL (2.50-7.00); NEUTROPHILS PERCENT AUTO 63.9 % (50.0-70.0); PLATELET COUNT,PLT 461 10^3/uL (150-400); RED BLOOD CELL COUNT 4.42 10^6/uL (3.80-5.50); RED CELL DISTRIBUTION WIDTH 12.3 % (11.5-14.5); WHITE BLOOD CELL COUNT,WBC 8.24 10^3/uL (5.00-10.00)
[2023-12-29 20:57] LABS: ALANINE AMINOTRANSFERASE,ALT 13 U/L (14-63); ALBUMIN 3.21 g/dL (3.40-5.00); ALKALINE PHOSPHATASE 168 U/L (46-116); ANION GAP 14.2 mmol/L (5-15); ASPARTATE AMNIOTRANSFERASE,AST 15 U/L (15-37); BILIRUBIN TOTAL 0.2 mg/dL (0.2-1.0); BLOOD UREA NITROGEN,BUN 14 mg/dL (7-18); CALCIUM 8.5 mg/dL (8.7-10.3); CARBON DIOXIDE,CO2 24.8 mmol/L (21.0-32.0); CHLORIDE,CL 97 mmol/L (98-107); CREATININE 0.64 mg/dL (0.51-1.17); GLUCOSE RANDOM 84 mg/dL (70-140); MAGNESIUM 1.9 mg/dL (1.8-2.4); PROTEIN TOTAL,TP 6.6 g/dL (6.4-8.2); SODIUM,NA 132 mmol/L (136-145)
[2023-12-29 21:01] LABS: ESTIMATED GFR 87 mL/min (>=60)
[2023-12-29 21:02] LABS: ETHANOL BLOOD MEDICAL 193 mg/dL (NOT DETECTED); INR 1.2 (0.9-1.1); PROTHROMBIN TIME 13.2 SEC (9.3-12.2); PTT,PARTIAL THROMBOPLSTIN TIME 48.3 SEC (23.3-34.9)
== END 2023-12-29 22:00 | disposition home or self-care (01) ==
LOC: SUPCPDRO 20:30 → KA.ED 20:30
DX: G45.9 Transient cerebral ischemic attack, unspecified (principal); I48.91 Unspecified atrial fibrillation; F10.129 Alcohol abuse with intoxication, unspecified; E87.8 Other disorders of electrolyte and fluid balance, not elsewhere classified; F17.210 Nicotine dependence, cigarettes, uncomplicated; Z79.01 Long term (current) use of anticoagulants; I25.10 Atherosclerotic heart disease of native coronary artery without angina pectoris; E78.00 Pure hypercholesterolemia, unspecified; K21.9 Gastro-esophageal reflux disease without esophagitis; E03.9 Hypothyroidism, unspecified; Z79.899 Other long term (current) drug therapy; Z88.0 Allergy status to penicillin; Z88.2 Allergy status to sulfonamides; Z88.6 Allergy status to analgesic agent
CPT/HCPCS: 36415; 70450; 71045; 80053; 80307; 83605; 83735; 84484; 85025; 85610; 85730; 93010; 99284; 99285

== ENCOUNTER 2024-08-25 11:35 | Inpatient (IN) | payer MEDICARE, BC ==
[2024-08-25] MEDS ORDERED: Sodium Chloride 0.9% 10 ML Syringe FLUSH PRN (11:42)
[2024-08-25 12:06] LABS: BASOPHILS ABSOLUTE AUTO 0.04 10^3/uL (0.00-0.10); BASOPHILS PERCENT AUTO 0.5 % (0.0-1.0); EOSINOPHILS ABSOLUTE AUTO 0.03 10^3/uL (0.10-0.30); EOSINOPHILS PERCENT AUTO 0.4 % (1.0-3.0); HEMATOCRIT 45.8 % (37.0-47.0); HEMOGLOBIN 15.4 g/dL (12.0-16.0); IMMATURE GRAN ABSOLUTE AUTO 0.02 10^3/uL (0.00-0.04); IMMATURE GRAN PERCENT AUTO 0.3 % (0.0-0.4); LYMPHOCYTES ABSOLUTE AUTO 1.32 10^3/uL (1.00-4.00); LYMPHOCYTES PERCENT AUTO 16.5 % (20.0-40.0); MEAN CORPUSCULAR HEMOGLOBIN 34.5 pg (27.0-31.0); MEAN CORPUSCULAR HGB CONC 33.6 g/dL (32.0-36.0); MEAN CORPUSCULAR VOLUME 102.7 fL (82.0-92.0); MEAN PLATELET VOLUME 8.1 fL (7.4-10.4); MONOCYTES ABSOLUTE AUTO 0.68 10^3/uL (0.10-0.80); MONOCYTES PERCENT AUTO 8.5 % (2.0-8.0); NEUTROPHILS ABSOLUTE AUTO 5.91 10^3/uL (2.50-7.00); NEUTROPHILS PERCENT AUTO 73.8 % (50.0-70.0); PLATELET COUNT,PLT 288 10^3/uL (150-400); RED BLOOD CELL COUNT 4.46 10^6/uL (3.80-5.50); RED CELL DISTRIBUTION WIDTH 12.2 % (11.5-14.5)
[2024-08-25 12:23] LABS: ALANINE AMINOTRANSFERASE,ALT 9 U/L (14-63); ALBUMIN 3.16 g/dL (3.40-5.00); ALKALINE PHOSPHATASE 99 U/L (46-116); ANION GAP 12.1 mmol/L (5-15); ASPARTATE AMNIOTRANSFERASE,AST 17 U/L (15-37); BILIRUBIN TOTAL 0.5 mg/dL (0.2-1.0); BLOOD UREA NITROGEN,BUN 11 mg/dL (7-18); CALCIUM 8.6 mg/dL (8.7-10.3); CARBON DIOXIDE,CO2 25.6 mmol/L (21.0-32.0); CHLORIDE,CL 104 mmol/L (98-107); CREATINE KINASE,CK 31 U/L (26-276); CREATININE 0.55 mg/dL (0.51-1.17); GLUCOSE RANDOM 99 mg/dL (70-140); POTASSIUM,K 3.7 mmol/L (3.5-5.1); PROTEIN TOTAL,TP 6.1 g/dL (6.4-8.2); SODIUM,NA 138 mmol/L (136-145)
[2024-08-25 12:24] LABS: ESTIMATED GFR 90 mL/min (>=60)
[2024-08-25 13:10] LABS: APPEARANCE,URINE CLOUDY (CLEAR); BILIRUBIN,URINE NEGATIVE (NEGATIVE); COLOR,URINE YELLOW (YELLOW); GLUCOSE,URINE NEGATIVE (NEGATIVE); KETONES,URINE TRACE mg/dL (NEGATIVE); LEUKOCYTE ESTERASE,URINE SMALL (NEGATIVE); NITRITE,URINE NEGATIVE (NEGATIVE); OCCULT BLOOD,URINE TRACE-INTACT (NEGATIVE); PH,URINE 6.5 (5.0-9.0); PROTEIN,URINE 100 mg/dL (NEGATIVE); UROBILINOGEN,URINE 0.2 E.U./dL (0.2-1.0)
[2024-08-25 13:25] LABS: RBC,URINE 0-5 /HPF (0-5)
[2024-08-25 13:26] LABS: BACTERIA,URINE MODERATE /HPF (NONE TO FEW); EPITHELIAL CELLS,URINE FEW /LPF; WBC,URINE 75-100 /HPF (0-5)
[2024-08-25] MEDS ORDERED: Ondansetron 4 MG Tab.DIS PO PRN (16:51)
[2024-08-25] MEDS ORDERED: Melatonin 3 MG Tab PO PRN (16:51)
[2024-08-25] MEDS ORDERED: Albuterol 8 GM Inhaler INH PRN (17:02)
[2024-08-25] MEDS: Ondansetron 4 MG/2 ML SDV IVPUSH PRN (18:34)
[2024-08-25] MEDS: cefTRIAXone 1 GM in Sodium Chloride 0.9% 50 ML IV SCH (18:41)
[2024-08-25] MEDS: Sodium Chloride 0.9% 50 ML ONE (18:41)
[2024-08-25] MEDS: Pravastatin 20 MG Tab PO SCH (20:32)
[2024-08-25] MEDS: busPIRone 10 MG Tab PO SCH (20:32)
[2024-08-25] MEDS: Fluticasone NASAL Spray 16 GM Bottle NASBOTH SCH (20:32)
[2024-08-26] MEDS: Acetaminophen/HYDROcodone 325-5 MG Tab PO PRN (03:25)
[2024-08-26] MEDS: Levothyroxine 100 MCG Tab PO SCH (06:30)
[2024-08-26] MEDS: Levothyroxine 75 MCG Tab PO SCH (06:30)
[2024-08-26 07:48] LABS: CALCIUM 8.9 mg/dL (8.7-10.3); CARBON DIOXIDE,CO2 23.8 mmol/L (21.0-32.0); CREATININE 0.6 mg/dL (0.51-1.17); EST CRCL DRUG DOSING (CG) 54.98 mL/min; POTASSIUM,K 3.8 mmol/L (3.5-5.1)
[2024-08-26] MEDS: Formoterol/Mometasone 100-5 MCG 8.8 GM Inhaler INH SCH (09:00)
[2024-08-26] MEDS: Tiotropium Bromide 4 GM Inhalation Spray (2.5mcg/1 dose; 10 doses) INH SCH (09:00)
[2024-08-26] MEDS: Lisinopril 5 MG Tab PO SCH (09:03)
[2024-08-26] MEDS: Omeprazole 20 MG Cap.CR PO SCH (09:03)
[2024-08-26] MEDS: Cyanocobalamin (Vitamin B12) 500 MCG Tab PO SCH (09:03)
[2024-08-26] MEDS: Furosemide 40 MG Tab PO SCH (09:04)
[2024-08-26] MEDS: Escitalopram 10 MG Tab PO SCH (09:04)
[2024-08-26] MEDS: Polyethylene Glycol 3350 Powder 17 GM Packet PO PRN (09:33)
[2024-08-26] MEDS ORDERED: BUPROPION HCL 100 MG PO SCH (14:32)
[2024-08-26] MEDS: BUPROPION HCL 100 MG PO SCH ×2 (14:43→14:57)
[2024-08-26] MEDS: DABIGATRAN PO SCH ×2 (14:50→14:58)
[2024-08-26] MEDS: Magnesium Hydroxide 400 MG/5 ML Susp 30 ML Cup PO PRN (14:57)
[2024-08-26] MEDS: Bisacodyl 5 MG Tab PO PRN (16:37)
[2024-08-26] MEDS: cefTRIAXone 1 GM Vial IVPUSH SCH (18:02)
[2024-08-26] MEDS: Acetaminophen 325 MG Tab PO PRN (20:51)
[2024-08-26] MEDS: Metoprolol Tartrate 25 MG Tab PO SCH (20:51)
[2024-08-27] MEDS: Simethicone 80 MG Tab.Chew PO PRN (09:58)
[2024-08-27] MEDS: Bisacodyl 10 MG Supp RECTAL PRN (12:37)
[2024-08-27] MEDS ORDERED: Magnesium Citrate Solution 296 ML Bottle PO PRN (12:49)
[2024-08-27] MEDS: Nicotine 14 MG/24 Hr Patch TRDERM SCH (15:57)
[2024-08-27] MEDS: Lactulose Soln 10 GM/15 ML 30 ML UD Cup PO SCH (17:06)
[2024-08-28] MEDS: Lidocaine 4% Patch TOP SCH (10:21)
[2024-08-30] MEDS ORDERED: traMADol 50 MG Tab PO PRN (09:45)
[2024-08-30] MEDS: TRELEGY ELLIPTA INH SCH (10:02)
== END 2024-08-31 11:05 | disposition swing bed (61) | DRG 552 ==
LOC: KA.ED 11:35 → KA.MS 17:04 → OBSVTOIN 08-26 14:15
PROVIDERS: ADMIT Family Medicine; ATTEND Internal Medicine
DX: M25.552 Pain in left hip (principal); M54.9 Dorsalgia, unspecified; I48.91 Unspecified atrial fibrillation; S22.089A Unspecified fracture of T11-T12 vertebra, initial encounter for closed fracture; S32.019A Unspecified fracture of first lumbar vertebra, initial encounter for closed fracture; S32.029A Unspecified fracture of second lumbar vertebra, initial encounter for closed fracture; J44.9 Chronic obstructive pulmonary disease, unspecified; S32.039A Unspecified fracture of third lumbar vertebra, initial encounter for closed fracture; S32.049A Unspecified fracture of fourth lumbar vertebra, initial encounter for closed fracture; N39.0 Urinary tract infection, site not specified; I48.11 Longstanding persistent atrial fibrillation; J44.1 Chronic obstructive pulmonary disease with (acute) exacerbation; Z79.890 Hormone replacement therapy; Z68.1 Body mass index [BMI] 19.9 or less, adult; E44.0 Moderate protein-calorie malnutrition; W19.XXXA Unspecified fall, initial encounter; Z96.643 Presence of artificial hip joint, bilateral; I25.10 Atherosclerotic heart disease of native coronary artery without angina pectoris; E78.00 Pure hypercholesterolemia, unspecified; K21.9 Gastro-esophageal reflux disease without esophagitis; F32.A Depression, unspecified; E03.9 Hypothyroidism, unspecified; I10 Essential (primary) hypertension; F41.9 Anxiety disorder, unspecified; M54.42 Lumbago with sciatica, left side; R29.6 Repeated falls; E53.8 Deficiency of other specified B group vitamins; Z88.0 Allergy status to penicillin; Z88.2 Allergy status to sulfonamides; Z88.8 Allergy status to other drugs, medicaments and biological substances; Z79.51 Long term (current) use of inhaled steroids; Z79.899 Other long term (current) drug therapy; Z95.2 Presence of prosthetic heart valve; Z86.73 Personal history of transient ischemic attack (TIA), and cerebral infarction without residual deficits; Z85.51 Personal history of malignant neoplasm of bladder; Z87.81 Personal history of (healed) traumatic fracture
CPT/HCPCS: 36415 ×2; 71045; 72100; 73502; 80048; 80053; 81001; 82550; 84484; 85025; 87086; 87088; 93005; 93010; 97116; 97161; 99284; 99285; A9270 ×15; J0696; J2405; Q3014 ×2; 72148; 74018; 96365; 96375; 97110-GP; G0378

== ENCOUNTER 2024-08-31 11:31 | Inpatient (IN) | payer MEDICARE, BC ==
[2024-08-31] MEDS ORDERED: Sodium Chloride 0.9% 10 ML Syringe FLUSH PRN (12:31)
[2024-08-31] MEDS ORDERED: Magnesium Citrate Solution 296 ML Bottle PO PRN (12:31)
[2024-08-31] MEDS ORDERED: Ondansetron 4 MG Tab.DIS PO PRN (12:31)
[2024-08-31] MEDS ORDERED: Ondansetron 4 MG/2 ML SDV IVPUSH PRN (12:31)
[2024-08-31] MEDS ORDERED: Fluticasone NASAL Spray 16 GM Bottle NASBOTH PRN (12:31)
[2024-08-31] MEDS ORDERED: Melatonin 3 MG Tab PO PRN (12:31)
[2024-08-31] MEDS ORDERED: Albuterol 8 GM Inhaler INH PRN (12:31)
[2024-08-31] MEDS: Sennosides/Docusate Sodium 50-8.6 MG Tab PO SCH (13:29)
[2024-08-31] MEDS: Metoprolol Tartrate 25 MG Tab PO SCH (20:10)
[2024-08-31] MEDS: busPIRone 10 MG Tab PO SCH (20:11)
[2024-08-31] MEDS: traMADol 50 MG Tab PO PRN (20:13)
[2024-08-31] MEDS: DABIGATRAN 150 MG PO SCH (20:18)
[2024-08-31] MEDS: Pravastatin 20 MG Tab PO SCH (20:18)
[2024-08-31] MEDS: Acetaminophen 325 MG Tab PO PRN (21:28)
[2024-09-01] MEDS: Levothyroxine 100 MCG Tab PO SCH (05:11)
[2024-09-01] MEDS: Levothyroxine 75 MCG Tab PO SCH (05:12)
[2024-09-01] MEDS: Acetaminophen/HYDROcodone 325-5 MG Tab PO PRN (07:38)
[2024-09-01] MEDS: Omeprazole 20 MG Cap.CR PO SCH (09:14)
[2024-09-01] MEDS: Cyanocobalamin (Vitamin B12) 500 MCG Tab PO SCH (09:14)
[2024-09-01] MEDS: Escitalopram 10 MG Tab PO SCH (09:14)
[2024-09-01] MEDS: Furosemide 40 MG Tab PO SCH (09:15)
[2024-09-01] MEDS: Lidocaine 4% Patch TOP SCH (09:17)
[2024-09-01] MEDS: Nicotine 14 MG/24 Hr Patch TRDERM SCH (09:17)
[2024-09-01] MEDS: TRELEGY INH SCH (09:20)
[2024-09-01] MEDS: Lisinopril 5 MG Tab PO SCH (09:22)
[2024-09-01] MEDS: Fluticasone NASAL Spray 16 GM Bottle NASBOTH SCH (09:23)
[2024-09-01] MEDS: Acetaminophen 500 MG Tab PO SCH (13:21)
[2024-09-01] MEDS: Magnesium Hydroxide 400 MG/5 ML Susp 30 ML Cup PO PRN (17:20)
[2024-09-01] MEDS: buPROPion 100 MG Tab.SR PO SCH (20:39)
[2024-09-02] MEDS: oxyCODONE 5 MG Tab PO PRN (10:10)
[2024-09-03] MEDS: Polyethylene Glycol 3350 Powder 17 GM Packet PO PRN (08:16)
[2024-09-03] MEDS: Bisacodyl 5 MG Tab PO PRN (17:46)
[2024-09-03] MEDS: Bisacodyl 5 MG Tab ONE (17:56)
[2024-09-04] MEDS: Bisacodyl 10 MG Supp RECTAL PRN (09:18)
[2024-09-06] MEDS ORDERED: Naproxen 500 MG Tab PO SCH (14:15)
[2024-09-07] MEDS: oxyCODONE ER 10 MG TAB.ER PO ONE (11:07)
[2024-09-08] MEDS: Simethicone 80 MG Tab.Chew PO PRN (22:09)
[2024-09-09] MEDS: Dexamethasone 4 MG Tab PO SCH (11:51)
[2024-09-09] MEDS: oxyCODONE ER 10 MG TAB.ER PO SCH (20:15)
[2024-09-10] MEDS: Furosemide 20 MG Tab PO SCH (08:54)
[2024-09-11] MEDS ORDERED: LORazepam 0.5 MG Tab PO PRN (15:48)
[2024-09-12] MEDS: Celecoxib 100 MG Cap PO SCH (09:26)
[2024-09-14] MEDS ORDERED: Tiotropium Bromide 4 GM Inhalation Spray (2.5mcg/1 dose; 10 doses) INH SCH (09:30)
[2024-09-14] MEDS ORDERED: Formoterol/Mometasone 100-5 MCG 8.8 GM Inhaler INH SCH (09:30)
[2024-09-14] MEDS: Tiotropium Bromide 4 GM Inhalation Spray (2.5mcg/1 dose; 10 doses) INH SCH (10:00)
[2024-09-14] MEDS: Formoterol/Mometasone 100-5 MCG 8.8 GM Inhaler INH SCH (10:01)
[2024-09-20 07:10] LABS: APPEARANCE,URINE CLEAR (CLEAR); BILIRUBIN,URINE NEGATIVE (NEGATIVE); COLOR,URINE YELLOW (YELLOW); GLUCOSE,URINE NEGATIVE (NEGATIVE); KETONES,URINE NEGATIVE (NEGATIVE); LEUKOCYTE ESTERASE,URINE NEGATIVE (NEGATIVE); NITRITE,URINE NEGATIVE (NEGATIVE); OCCULT BLOOD,URINE NEGATIVE (NEGATIVE); PH,URINE 5.5 (5.0-9.0); PROTEIN,URINE NEGATIVE (NEGATIVE); UROBILINOGEN,URINE 0.2 E.U./dL (0.2-1.0)
[2024-09-20 07:21] LABS: BACTERIA,URINE RARE /HPF (NONE TO FEW); EPITHELIAL CELLS,URINE RARE /LPF; RBC,URINE 0-5 /HPF (0-5); WBC,URINE 0-5 /HPF (0-5)
[2024-09-26 13:37] VITALS: BP 154/76; PULSE 69
== END 2024-09-26 13:20 | disposition home health service (06) | DRG 552 ==
LOC: KA.MS 11:50 → UNDOADMIN 11:50 → KA.MS 12:05
PROVIDERS: ADMIT Family Medicine; ATTEND Family Medicine
DX: M54.42 Lumbago with sciatica, left side (principal); N39.0 Urinary tract infection, site not specified; I48.11 Longstanding persistent atrial fibrillation; R53.81 Other malaise; Z66 Do not resuscitate; W19.XXXA Unspecified fall, initial encounter; S32.000G Wedge compression fracture of unspecified lumbar vertebra, subsequent encounter for fracture with delayed healing; K21.9 Gastro-esophageal reflux disease without esophagitis; E53.8 Deficiency of other specified B group vitamins; F41.9 Anxiety disorder, unspecified; F32.A Depression, unspecified; E03.9 Hypothyroidism, unspecified; I10 Essential (primary) hypertension; E78.5 Hyperlipidemia, unspecified; J44.9 Chronic obstructive pulmonary disease, unspecified; G89.29 Other chronic pain; Z95.2 Presence of prosthetic heart valve; Z85.51 Personal history of malignant neoplasm of bladder; Z79.899 Other long term (current) drug therapy
CPT/HCPCS: 81001; 96125-GN; 97110-GO; 97110-GP; 97116-GP; 97161-GP; 97165-GO; 97535-GO; 99307-GT; 99316-GT; A6212; A9270-GY; J8540; Q3014